=== PATIENT | male | born 1980 | race Caucasian/White ===

== ENCOUNTER 2016-12-23 08:52 | Outpatient (CLI) | payer OTHER ==
[2015-01-25 13:17] VITALS: BP 158/89
[2016-12-23 09:36] LABS: eGFR (African) > 60; eGFR (Non-African) > 60
== END 2016-12-23 08:53 ==
LOC: LAB 08:52
PROVIDERS: ATTEND Family Medicine
DX: Z00.00 Encounter for general adult medical examination without abnormal findings (principal)
CPT/HCPCS: 36415; 80053; 80061

== ENCOUNTER 2017-12-28 09:10 | Outpatient (CLI) | payer OTHER ==
[2015-01-25 13:17] VITALS: BP 158/89
[2017-12-28 10:41] LABS: eGFR (Non-African) > 60
== END 2017-12-28 09:11 ==
LOC: LAB 09:10
PROVIDERS: ATTEND Family Medicine
DX: Z00.00 Encounter for general adult medical examination without abnormal findings (principal)
CPT/HCPCS: 36415; 80053; 80061

== ENCOUNTER 2018-09-21 08:25 | Outpatient (CLI) | payer OTHER ==
[2015-01-25 13:17] VITALS: BP 158/89
[2018-09-21 08:52] LABS: HDL 51 mg/dL (>40); eGFR (Non-African) > 60
== END 2018-09-21 08:27 ==
LOC: LAB 08:25
PROVIDERS: ATTEND Family Medicine
DX: Z13.220 Encounter for screening for lipoid disorders (principal)
CPT/HCPCS: 36415; 80053; 80061